=== PATIENT | female | born 2005 | race Caucasian/White ===

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

== ENCOUNTER 2023-06-26 20:54 | Emergency (ER) | payer OTHER ==
[~2023-06-26] VITALS: Ht 172.7 cm; Wt 77.1 kg
[2023-06-26 21:25] LABS: BASO % 0.3 % (0.0-1.0); EOS # 0.1 10*3/uL (0.0-0.4); EOS % 0.5 % (1.0-4.0); HEMATOCRIT 43.3 % (37.0-47.0); LYMPH % 10.9 % (27.0-41.0); MEAN CELL VOLUME 95.4 fl (81.0-99.0); MEAN CORPUSCULAR HGB 31.5 pg (27.0-31.0); MEAN PLATELET VOLUME 10.7 fl (9.6-12.3); MONO # 0.5 10*3/uL (0.1-1.0); MONO % 4.8 % (3.0-9.0); NEUT # 7.9 10*3/uL (2.3-7.9); NEUT % 83.3 % (47.0-73.0); PLATELET COUNT AUTOMATED 209 10*3/uL (130-400); RED BLOOD COUNT 4.54 10*6/uL (4.10-5.10); RED CELL DISTRI WIDTH 12.3 % (0-14.5); WHITE BLOOD COUNT 9.5 10*3/uL (4.8-10.8)
[2023-06-26 21:52] LABS: ALKALINE PHOSPHATASE 45 U/L (46-116); BUN 6 mg/dl (9-23); CHLORIDE 108 mmol/L (98-107); LIPASE 49 U/L (12-53); SGPT/ALT 9 U/L (5-49); TOTAL PROTEIN 6.8 gm/dL (6.0-8.0)
[2023-06-27] MEDS ORDERED: ONDANSETRON4 MG SL (00:19)
== END 2023-06-27 00:39 | disposition home or self-care (01) ==
LOC: ED 20:54
PROVIDERS: Nurse Practitioner
DX: K52.9 Noninfective gastroenteritis and colitis, unspecified (principal); R11.2 Nausea with vomiting, unspecified; F90.9 Attention-deficit hyperactivity disorder, unspecified type

== ENCOUNTER 2024-03-15 01:16 | Emergency (ER) | payer OTHER ==
[~2024-03-15] VITALS: Ht 177.8 cm; Wt 63.5 kg
[~2024-03-15 01:16] MED LIST changes: +ONDANSETRON4 MG SL
[2024-03-15 01:50] LABS: BASO # 0.1 10*3/uL (0.0-0.1); BASO % 0.7 % (0.0-1.0); EOS % 0.5 % (1.0-4.0); HEMATOCRIT 40.2 % (37.0-47.0); LYMPH # 2.8 10*3/uL (1.3-4.4); LYMPH % 32.7 % (27.0-41.0); MEAN CELL VOLUME 93.9 fl (81.0-99.0); MEAN CORPUSCULAR HGB 30.6 pg (27.0-31.0); MEAN CORPUSCULAR HGB CONC 32.6 g/dl (33.0-37.0); MEAN PLATELET VOLUME 10.3 fl (9.6-12.3); MONO # 0.5 10*3/uL (0.1-1.0); MONO % 6.1 % (3.0-9.0); NEUT # 5.1 10*3/uL (2.3-7.9); NEUT % 59.6 % (47.0-73.0); PLATELET COUNT AUTOMATED 256 10*3/uL (130-400); RED BLOOD COUNT 4.28 10*6/uL (4.10-5.10); RED CELL DISTRI WIDTH 13.1 % (0-14.5); WHITE BLOOD COUNT 8.5 10*3/uL (4.8-10.8)
[2024-03-15 02:14] LABS: ALKALINE PHOSPHATASE 48 U/L (46-116); BUN 10 mg/dl (9-23); CHLORIDE 108 mmol/L (98-107); LIPASE 48 U/L (12-53); POTASSIUM 3.7 mmol/L (3.4-5.1); SGPT/ALT 11 U/L (5-49); TOTAL PROTEIN 7.1 gm/dL (6.0-8.0)
[2024-03-15 02:19] LABS: BILIRUBIN Negative (Negative); BLOOD Negative (Negative); CLARITY Cloudy (Clear); COLOR Yellow (Yellow); GLUCOSE Negative (Negative); KETONE Negative (Negative); LEUKO ESTERASE Negative (Negative); NITRITE Negative (Negative); SPECIFIC GRAVITY 1.025 (1.001-1.030)
[2024-03-15 02:35] LABS: EPITHELIAL CELLS 21-30; MUCOUS 1+
[2024-03-15 02:36] LABS: BACTERIA 1+
[2024-03-15] MEDS ORDERED: Ondansetron4 MG PO (02:58)
[2024-03-15] MEDS ORDERED: Ondansetron Hydrochloride 4 MG TAB SL ONE (03:05)
== END 2024-03-15 03:09 | disposition home or self-care (01) ==
LOC: ED 01:16
PROVIDERS: Internal Medicine
DX: R11.2 Nausea with vomiting, unspecified (principal); F12.10 Cannabis abuse, uncomplicated; R10.9 Unspecified abdominal pain; F90.9 Attention-deficit hyperactivity disorder, unspecified type

== ENCOUNTER 2024-10-10 11:23 | Emergency (ER) | payer OTHER ==
[~2024-10-10] VITALS: Ht 172.7 cm; Wt 63.5 kg
[~2024-10-10 11:23] MED LIST changes: +Ondansetron4 MG PO
[2024-10-10] MEDS ORDERED: diphenhydrAMINE hydrochloride 50 MG/ML VIAL IV ONE (11:50)
[2024-10-10] MEDS ORDERED: Metoclopramide Hydrochloride 10 MG/2 ML VIAL IV ONE (11:50)
[2024-10-10] MEDS ORDERED: SODIUM CHLORIDE 0.9% 1,000 ML IV ONE (11:50)
[2024-10-10 12:02] LABS: BASO % 0.3 % (0.0-1.0); HEMATOCRIT 44.7 % (37.0-47.0); MEAN CELL VOLUME 93.5 fl (81.0-99.0); MEAN CORPUSCULAR HGB 30.5 pg (27.0-31.0); MEAN CORPUSCULAR HGB CONC 32.7 g/dl (33.0-37.0); MEAN PLATELET VOLUME 10.3 fl (9.6-12.3); MONO # 0.3 10*3/uL (0.1-1.0); MONO % 3.1 % (3.0-9.0); NEUT # 7.6 10*3/uL (2.3-7.9); NEUT % 84.5 % (47.0-73.0); PLATELET COUNT AUTOMATED 257 10*3/uL (130-400); RED BLOOD COUNT 4.78 10*6/uL (4.10-5.10); RED CELL DISTRI WIDTH 12.2 % (0-14.5)
[2024-10-10 12:23] LABS: ALKALINE PHOSPHATASE 51 U/L (46-116); BUN 18 mg/dl (9-23); CHLORIDE 105 mmol/L (98-107); LIPASE 32 U/L (12-53); POTASSIUM 3.3 mmol/L (3.4-5.1); SGPT/ALT 14 U/L (5-49)
[2024-10-10 12:58] LABS: BILIRUBIN Negative (Negative); BLOOD 3+ (Negative); CLARITY Clear (Clear); COLOR Yellow (Yellow); GLUCOSE Negative (Negative); KETONE 4+ (Negative); LEUKO ESTERASE Negative (Negative); NITRITE Negative (Negative); PH 5.5 (4.5-8.0); SPECIFIC GRAVITY >= 1.030 (1.001-1.030)
[2024-10-10] MEDS ORDERED: POTASSIUM CHLORIDE 20 MEQ TAB PO ONE (13:05)
[2024-10-10 13:09] LABS: URINE AMPHETAMINES Negative (1000ng/ml); URINE BARBITURATES Negative (200ng/ml); URINE BENZODIAZEPINES Negative (200ng/ml); URINE CANNABINOIDS (THC) Positive (50ng/ml); URINE COCAINE Negative (300ng/ml); URINE METHADONE Negative (300ng/ml); URINE OPIATES Negative (300ng/ml); URINE PHENCYCLIDINE Negative (25ng/ml)
[2024-10-10 13:26] LABS: BACTERIA 2+; MUCOUS 1+; RBC 41-50 rbc/hpf (0-2); WBC 0-2 wbc/hpf (0-5)
[2024-10-10] MEDS ORDERED: REGLAN5 MG PO (14:17)
== END 2024-10-10 14:25 | disposition home or self-care (01) ==
LOC: ED 11:23
PROVIDERS: Physician Assistant Medical
DX: R11.2 Nausea with vomiting, unspecified (principal); E80.6 Other disorders of bilirubin metabolism; F12.20 Cannabis dependence, uncomplicated; Z20.822 Contact with and (suspected) exposure to COVID-19; I50.9 Heart failure, unspecified; F32.A Depression, unspecified; F90.9 Attention-deficit hyperactivity disorder, unspecified type; Z79.899 Other long term (current) drug therapy

== ENCOUNTER 2025-06-18 17:45 | Emergency (ER) | payer BC, OTHER ==
[~2025-06-18] VITALS: Ht 175.2 cm; Wt 63.5 kg
[~2025-06-18 17:45] MED LIST changes: +REGLAN5 MG PO
[2025-06-18] MEDS ORDERED: OFLOXACIN 0.3% 5 ML BOTTLE OPH ONE (18:15)
== END 2025-06-18 18:15 | disposition home or self-care (01) ==
LOC: ED 17:45
DX: H10.9 Unspecified conjunctivitis (principal); F90.9 Attention-deficit hyperactivity disorder, unspecified type

== ENCOUNTER 2025-06-20 11:38 | Emergency (ER) | payer OTHER, BC ==
[~2025-06-20] VITALS: Wt 63.5 kg
[2025-06-20] MEDS ORDERED: Tetracaine Hydrochloride 0.5% 4 ML BOT OPH ONE (12:00)
[2025-06-20] MEDS ORDERED: FLUORESCEIN SODIUM 1 MG STRIP OPH ONE (12:00)
== END 2025-06-20 12:40 | disposition home or self-care (01) ==
LOC: ED 11:38
DX: H57.11 Ocular pain, right eye (principal); H53.8 Other visual disturbances; Z79.899 Other long term (current) drug therapy; W26.8XXA Contact with other sharp object(s), not elsewhere classified, initial encounter; Y93.89 Activity, other specified; Y92.89 Other specified places as the place of occurrence of the external cause; Y99.0 Civilian activity done for income or pay